=== PATIENT | female | born 1990 | race Caucasian/White ===

== ENCOUNTER 2021-01-06 00:59 | Inpatient (IN) | payer OTHER ==
[2021-01-06] MEDS: ELECTROLYTE-148 SOLN 1,000 ML IV SCH ×2 (03:20→10:00)
[2021-01-06 06:07] VITALS: BMI 30.2
[2021-01-06] MEDS ORDERED: PROMETHAZINE HCL 25 MG/1 ML VIAL IVPB ONE (06:57)
[2021-01-06] MEDS ORDERED: BUTORPHANOL TARTRATE 1 MG/ML VIAL IVPB PRN (06:57)
[2021-01-06] MEDS ORDERED: ELECTROLYTE-148 SOLN 1,000 ML IV SCH (07:00)
[2021-01-06] MEDS ORDERED: PCA PUMP NR ONE (07:28)
[2021-01-06] MEDS ORDERED: FENTANYL/BUPIVACAINE/NS/PF - PCEA - 50 ML DISP.SYRIN EP ONE (07:28)
[2021-01-06 07:49] LABS: CALCIUM 8.3 mg/dL (8.5-10.1); INR 0.86 (0.83-1.09); PROTHROMBIN TIME (PATIENT) 10.6 SEC (9.7-13.0)
[2021-01-06 07:50] LABS: BLOOD UREA NITROGEN 7.9 mg/dL (7-18)
[2021-01-06 07:53] LABS: CREATININE 0.4 mg/dL (0.55-1.3)
[2021-01-06 07:56] LABS: BASO % 0.2 % (0-2.0); EOS % 0.1 % (0-4.5); HEMATOCRIT 35.6 % (32.4-45.2); HEMOGLOBIN 12.1 GM/dL (10.7-15.3); LYMPH % 10.7 % (8-40); MCH 33.5 pg (25.7-33.7); MCHC 34.1 g/dl (32.0-36.0); MEAN CELL VOLUME 98.3 fl (80-96); MEAN PLT VOLUME 9.4 fl (7.5-11.1); MONO % 4.1 % (3.8-10.2); NEUT % 84.9 % (42.8-82.8); PLATELET COUNT 187 10^3/uL (134-434); RBC 3.62 M/mm3 (3.60-5.2)
[2021-01-06 07:58] LABS: ACTIVATED PTT 30.4 SECONDS (25.2-36.5)
[2021-01-06] MEDS ORDERED: PROMETHAZINE HCL 25 MG/1 ML VIAL ONE (08:29)
[2021-01-06] MEDS ORDERED: BUTORPHANOL TARTRATE 2 MG/ML VIAL ONE (08:29)
[2021-01-06 08:44] LABS: HIV INTERPRETATION NEGATIVE (NEGATIVE)
[2021-01-06] MEDS ORDERED: OXYTOCIN 20 UNITS in 0.9% NS 20 UNIT/1,000 ML INFUS.BAG IV ONE (12:53)
[2021-01-06] MEDS ORDERED: LIDOCAINE HCL 1% PRESERVATIVE FREE - 30ML VIAL ONE (12:53)
[2021-01-06] MEDS ORDERED: BISACODYL 10 MG SUPP.RECT PR PRN (16:09)
[2021-01-06] MEDS ORDERED: ACETAMINOPHEN 325 MG TABLET (FP) PO PRN (16:09)
[2021-01-06] MEDS ORDERED: BENZOCAINE 28 GM HEMORRHOIDAL OINTMENT PR PRN (16:09)
[2021-01-06] MEDS ORDERED: IBUPROFEN 600 MG TABLET (FP) PO PRN (16:09)
[2021-01-06] MEDS ORDERED: WITCH HAZEL 50% (TUCKS) 40 PAD/JAR PAD TP PRN (16:09)
[2021-01-06] MEDS ORDERED: BENZOCAINE 20% 57 GM BOTTLE TP PRN (16:09)
[2021-01-06] MEDS ORDERED: METHYLERGONOVINE MALEATE 0.2 MG/1 ML AMP IM PRN (16:09)
[2021-01-06] MEDS ORDERED: OXYTOCIN 20 UNITS in 0.9% NS 20 UNIT/1,000 ML INFUS.BAG IV SCH (16:15)
[2021-01-06] MEDS ORDERED: ACETAMINOPHEN 325 MG TABLET (FP) ONE (16:25)
[2021-01-06] MEDS ORDERED: IBUPROFEN 600 MG TABLET (FP) PO ONE (16:25)
[2021-01-06 17:09] LABS: CORD BASE EXCESS -8.4 mmol/L (0-2); CORD HCO3 20.1 mmHg (20-29); CORD PCO2 52.3 mmHg (30-78); CORD pH 7.202 (7.14-7.44)
[2021-01-06 17:12] LABS: CORD BASE EXCESS -10.3 mmol/L (0-2); CORD HCO3 19.5 mmHg (20-29); CORD pH 7.138 (7.14-7.44)
[2021-01-07 09:31] LABS: BASO % 0.2 % (0-2.0); EOS % 0.5 % (0-4.5); HEMATOCRIT 31.8 % (32.4-45.2); HEMOGLOBIN 10.6 GM/dL (10.7-15.3); LYMPH % 11.7 % (8-40); MCH 33.5 pg (25.7-33.7); MCHC 33.5 g/dl (32.0-36.0); MEAN CELL VOLUME 100.1 fl (80-96); MEAN PLT VOLUME 9.2 fl (7.5-11.1); MONO % 4.2 % (3.8-10.2); NEUT % 83.4 % (42.8-82.8); PLATELET COUNT 185 10^3/uL (134-434); RBC 3.18 M/mm3 (3.60-5.2); RDW 13.3 % (11.6-15.6); WHITE BLOOD COUNT 15.7 K/mm3 (4.0-10.0)
[2021-01-08 11:06] VITALS: BP 102/66; PULSE 96; TEMP 97.9
== END 2021-01-08 12:00 | disposition home or self-care (01) | DRG 807 ==
LOC: JDEL 00:59 → JLDR 04:30 → J3W 17:50
PROVIDERS: ADMIT Obstetrics & Gynecology; ATTEND Obstetrics & Gynecology
PROC: 10E0XZZ Delivery of Products of Conception, External Approach (ICD-10-PCS; principal; 2021-01-06)
PROC: 0W8NXZZ Division of Female Perineum, External Approach (ICD-10-PCS; 2021-01-06)
PROC: 10D07Z6 Extraction of Products of Conception, Vacuum, Via Natural or Artificial Opening (ICD-10-PCS; 2021-01-06)
DX: O75.81 Maternal exhaustion complicating labor and delivery (principal); O76 Abnormality in fetal heart rate and rhythm complicating labor and delivery; O66.5 Attempted application of vacuum extractor and forceps; Z3A.38 38 weeks gestation of pregnancy; Z37.0 Single live birth
CPT/HCPCS: 36415; 36600; 59025; 59409; 80048; 82803; 85025; 85610; 85730; 86780; 86850; 86900; 86901; 87389; C9803; U0003; U0005